=== PATIENT | female | born 1955 | race Caucasian/White ===

== ENCOUNTER 2019-05-26 15:06 | Emergency (ER) | payer MEDICAID ==
[~2019-05-26] VITALS: Ht 149.9 cm; Wt 60.0 kg
[2019-05-26 15:11] VITALS: BP 137/87
--- NOTE | 2019-05-26 15:17 | NUR ---
PT AMBULATED TO BED 10 AT THIS TIME.
--- NOTE | 2019-05-26 15:40 | NUR ---
C/O THROAT DISCOMFORT FOR 4 HOURS. PT STATES SHE THINKS SHE SWALLOWED A PIECE OG GARLIC AND FEELS LIKE IT IS STUCK IN HER THROAT. PT AIRWAY PATENT, SPO2 99% RA, NO RESP. DISTRESS NOTED. SKIN WARM AND DRY.
[2019-05-26] MEDS ORDERED: DICYCLOMINE HCL LIQUID 20 MG, ALUMINUM HYD/MAG/SIMETHICONE 30 ML, LIDOCAINE VISCOUS 2% ... PO ONE ×3 (16:05)
[2019-05-26 18:15] VITALS: BP 137/87
--- NOTE | 2019-05-26 18:15 | NUR ---
Patient discharged with v/s stable. Written and verbal after care instructions given and explained. Patient alert, oriented and verbalized understanding of instructions. Ambulatory with steady gait. All questions addressed prior to discharge. ID band removed. Patient advised to follow up with PMD.Patient educated on indication of medication including possible reaction and side effects. Opportunity to ask questions provided and answered.
== END 2019-05-26 18:30 | disposition home or self-care (01) ==
LOC: MED 15:06
DX: J02.9 Acute pharyngitis, unspecified (principal); F45.8 Other somatoform disorders
CPT/HCPCS: 70360; 99283